=== PATIENT | male | born 1955 | race Caucasian/White ===

== ENCOUNTER 2016-06-11 07:38 | Inpatient (IN) | payer MEDICARE, BC ==
[2016-06-11] MEDS ORDERED: HYDROmorphone 1 MG/ML 1 ML SYRINGE IV PRN (12:06)
[2016-06-11] MEDS ORDERED: NALOXONE 0.4 MG/ML 1 ML VIAL IV PRN (12:06)
[2016-06-11] MEDS ORDERED: LORazepam 1 MG TAB PO PRN (12:08)
[2016-06-11] MEDS ORDERED: ONDANSETRON 4 MG/2 ML VIAL IVP PRN (12:09)
--- NOTE | 2016-06-11 12:10 | P.CONS ---
History of Present Illness - Reason for Consult Consult date: 06/11/16 Jaundice Requesting physician: Candelario Cantu - History of Present Illness 61-year-old gentleman from the [place] area with a past medical history of chronic pain maintained on oxycodone 4 times daily, [id number] diabetes mellitus, and nicotine cigarette dependency. Patient was evaluated in the [place] [facility] office last week in regards to new onset of jaundice. Over [place] time patient was experiencing diffuse abdominal pain which he thought was related to constipation. Constipation resolved and so did his pain however about a week ago he developed diffuse upper abdominal pain that radiated to the mid lower abdomen. He noticed darker colored urine as well as campus coordinator colored bowel movements over the last week. He states his liver chemistries last week were elevated and his cholesterol medication was discontinued. Repeat outpatient chemistries indicated an increase in his liver enzymes and total bilirubin. He was notified this morning of his lab results and advised to come to the hospital for further evaluation. Repeat liver chemistries as well as hepatitis panel testing is pending at time of this dictation. Currently patient denies abdominal pain. No history of jaundice or hepatitis. No history of alcoholism. 10 pound weight loss over the last 2 weeks. Outpatient Ultrasound 1-2 weeks ago reported to be without gallstones. Review of Systems Constitutional: Denies fever, chills, sweats, weight gain, or loss. HEENT: Negative for migraines, blurred vision or loss, earaches, drainage, tinnitus, oral mucosal lesions, dysphagia, or odynophagia. Cardiac: Negative for chest pain, arrhythmias, or palpitation. Respiratory: Cigarette nicotine dependency. Negative for shortness of breath, hemoptysis, cough, or sputum production. Gastrointestinal: Negative for nausea, vomiting, abdominal pain, diarrhea, constipation, hematemesis, hematochezia, and melena. Genitourinary: Negative for hematuria, urgency, frequency, polyuria, dysuria, or penile discharge. Musculoskeletal: History of chronic pain. Osteoarthritis. Negative for muscle aches, swelling. Neurologic: Negative for stroke or TIA. Endocrine: Diabetes mellitus. Negative for thyroid problems. Skin: Negative for rash or itching. Psychiatric: Negative history for depression and anxiety All systems: negative (See HPI) Past Medical History Past Medical History: Diabetes Mellitus, Osteoarthritis (OA) Additional Past Medical History / Comment(s): "BORDERLINE DIABETES-MONITORS BS", History of Any Multi-Drug Resistant Organisms: None Reported Past Surgical History: Hernia Repair, Orthopedic Surgery Additional Past Surgical History / Comment(s): ALVARO INGUINAL HERNIA REPAIR, RT KNEE ARTHROSCOPIC X 3, TOT RT KNEE, LT SHOULDER SURGERY Past Anesthesia/Blood Transfusion Reactions: No Reported Reaction Past Psychological History: No Psychological Hx Reported Smoking Status: Current every day smoker Past Alcohol Use History: None Reported Past Drug Use History: None Reported - Past Family History Mother Family Medical History: Cancer Additional Family Medical History / Comment(s): UTERINE Medications and Allergies Home Medications Medication Instructions Recorded Confirmed Type Cyclobenzaprine [Flexeril] 10 mg PO BID 12/26/13 06/11/16 History Etodolac [Lodine] 400 mg PO BID 12/26/13 06/11/16 History LORazepam [Ativan] 1 mg PO BID PRN 12/26/13 06/11/16 History Cholecalciferol [Vitamin D3] 1,000 unit PO DAILY 06/11/16 06/11/16 History Lisinopril [Zestril] 10 mg PO DAILY 06/11/16 06/11/16 History Sildenafil [Revatio] 20 mg PO DAILY PRN 06/11/16 06/11/16 History metFORMIN HCL [Glucophage] 500 mg PO BID 06/11/16 06/11/16 History oxyCODONE HCL 20 mg PO QID PRN 06/11/16 06/11/16 History Allergies Allergy/AdvReac Type Severity Reaction Status Date / Time No Known Allergies Allergy Verified 06/11/16 11:16 Physical Exam Vitals: Vital Signs Temp Pulse Resp BP Pulse Ox 06/11/16 11:51 96.7 F L 80 16 149/72 100 Intake and Output 06/10/16 06/11/16 06/11/16 22:59 06:59 14:59 Other: Weight 83.1 kg Patient Weight 06/12/16 06:59 Weight 83.1 kg General appearance: The patient is alert, oriented, in no acute distress. Jaundice. HET: Head is normocephalic and atraumatic. Pupils are equal and reactive. Sclerae icterus. Oropharynx is clear without lesions. Neck: Supple without lymphadenopathy. Trachea midline. Heart: S1 S2. Regular rate and rhythm. Lungs: No crackles or wheezes are heard. Abdomen: Soft, nontender, nondistended with bowel sounds. No peritoneal signs. No palpable organomegaly or masses. Extremities: Normal skin color and turgor. No cyanosis, rash, ulceration, clubbing, or edema. Radial and pedal pulses are 2/4 bilaterally. Neurological: No focal deficits. Strength and sensation are grossly intact. Results CBC & Chem 7: 06/11/16 12:21 Assessment and Plan (1) Jaundice Narrative/Plan: 61-year-old gentleman presents with 1 week history of new onset of jaundice with diffuse mild abdominal discomfort and elevated transaminases hyperbilirubinemia in the outpatient setting with darker colored urine and acholic stools suggestive of biliary obstruction possible mass possible stricture possible choledocholithiasis. Status: Acute Plan: 1. MRI liver/MRCP in the morning followed by ERCP evaluation. 2. Repeat liver chemistries and hepatitis panel testing. We will also obtain CA-19-9 and CEA level. 3. GI prophylaxis. 4. Diet as tolerated nothing by mouth after midnight. The tubing assembler has discussed the risks, benefits and alternative therapies for the above-mentioned procedure and for both sedation/analgesia as well as necessary blood product administration, if indicated, as they pertain to this patient. The patient has indicated understanding and acceptance of the risks and procedures discussed. Thank you for this kind referral and the opportunity to participate in the care of your patient. This consultation was discussed with Dr. White. The impression and plan of care have been directed as dictated.
[2016-06-11] MEDS ORDERED: SODIUM CHLORIDE 0.9% 1,000 ML IV SCH (12:15)
[2016-06-11 12:37] LABS: Glucose,Whole Blood 295 mg/dL (75-99)
[2016-06-11 12:47] LABS: INR 1.1 (<1.1); Prothrombin Time 10.6 sec (9.0-12.0)
[2016-06-11 13:13] LABS: Basophils % (A) 0 %; CH 28.6; CHCM 31.7; Eosinophils # (A) 0.1 k/uL (0-0.7); Eosinophils % (A) 1 %; HDW 2.22; HGB 14.3 gm/dL (13.0-17.5); Luc # (Auto) 0.08; Luc % (Auto) 1; Lymphocytes # (A) 1.3 k/uL (1.0-4.8); Lymphocytes % (A) 22 %; MCH 28.8 pg (25.0-35.0); MCHC 31.8 g/dL (31.0-37.0); MCV 90.4 fL (80.0-100.0); Monocytes # (A) 0.3 k/uL (0-1.0); Monocytes % (A) 5 %; Neutrophils # (A) 4.3 k/uL (1.3-7.7); Neutrophils % (A) 70 %; RBC 4.97 m/uL (4.30-5.90); WBC 6.1 k/uL (3.8-10.6)
[2016-06-11 13:18] LABS: ALT 802 U/L (21-72); AST 285 U/L (17-59); Alkaline Phosphatase 428 U/L (38-126); Amylase 31 U/L (30-110); Anion Gap 15 mmol/L; Blood Urea Nitrogen 14 mg/dL (9-20); Calcium 9.8 mg/dL (8.4-10.2); Carbon Dioxide 20 mmol/L (22-30); Chloride 99 mmol/L (98-107); Glucose 316 mg/dL (74-99); Non-African American GFR(MDRD) >60 (>60 ml/min/1.73 sqM); Phosphorous 4.1 mg/dL (2.5-4.5); Potassium 4.7 mmol/L (3.5-5.1); Sodium 134 mmol/L (137-145); Total Bilirubin 5.9 mg/dL (0.2-1.3)
[2016-06-11] MEDS: INSULIN LISPRO (humaLOG) 300 UNIT/3 ML VIAL SQ SCH ×3 (13:19→21:41)
[2016-06-11] MEDS: SODIUM CHLORIDE 0.9% 1,000 ML IV SCH (13:43)
[2016-06-11] MEDS: PANTOPRAZOLE 40 MG/10 ML VIAL IVP SCH (13:43)
[2016-06-11 14:58] LABS: Hepatitis B Surface Ag Index 0.07
[2016-06-11 15:03] LABS: Hepatitis B Core IgM Index 0.03
[2016-06-11 15:15] LABS: Hepatitis C Virus IgG Index 0.01
[2016-06-11 15:17] LABS: Hepatitis C Virus IgG Ab Negative (Negative)
[2016-06-11 15:45] LABS: Total Bilirubin 5.8 mg/dL (0.2-1.3)
[2016-06-11 16:23] LABS: Appearance,Urine Clear (Clear); Bilirubin,Urine 2+ (Negative); Glucose,Urine (UA) 4+ (Negative); Ketones,Urine Negative (Negative); Leukocyte Esterase,Urine Negative (Negative); Nitrite,Urine Negative (Negative); Protein,Urine Negative (Negative); Specific Gravity,Urine 1.008 (1.001-1.035); UA Billing (MACRO vs. MICRO) CHEM; Urobilinogen,Urine <2.0 mg/dL (<2.0)
[2016-06-11 16:48] LABS: Glucose,Whole Blood 272 mg/dL (75-99)
[2016-06-11] MEDS: CYCLOBENZAPRINE 10 MG TAB PO SCH (17:38)
[2016-06-11] MEDS: metFORMIN 500 MG TAB PO SCH (17:39)
[2016-06-11] MEDS ORDERED: metFORMIN 500 MG TAB PO SCH (21:00)
[2016-06-11 21:37] LABS: Glucose,Whole Blood 278 mg/dL (75-99)
--- NOTE | 2016-06-11 22:38 | HP ---
CHIEF COMPLAINT: Elevated LFTs. HISTORY OF PRESENT ILLNESS: This 61-year-old gentleman with a past medical history of multiple medical problems including diabetes mellitus, history of hyperlipidemia, history of degenerative joint disease, history of chronic pain syndrome, DJD, being followed by Dr. in the outpatient setting was evaluated for constipation, diffuse abdominal discomfort around [place] time. Because of lack of improvement, patient also had some blood work which showed increased LFTs. Lipid-lowering medications stopped, but still the patient had elevated LFTs and evaluated by Dr. White and the patient sent to [facility] as a direct admission at this time. MRCP is planned. There is no history of any fevers, rigors, chills. No history of headache, loss of consciousness, seizures. A CAT scan done and was reported as normal. Past medical history of diabetes mellitus, hyperlipidemia, DJD, history of pneumonia, hernia repair, joint replacement. MEDICATIONS PRIOR TO ADMISSION: 1. Oxycodone 20 mg t.i.d. p.r.n. 2. Glucophage 500 mg daily. 3. Ida 20 mg daily p.r.n. 4. Zestril 10 mg daily. 5. Ativan 1 mg b.i.d. p.r.n. 6. Lodine 400 mg p.o. b.i.d. 7. Flexeril 10 mg b.i.d. 8. Vitamin D3 1000 daily. Allergies are none. FAMILY HISTORY: History of uterine cancer in the family. SOCIAL HISTORY: Occasional alcohol intake and previous history of smoking. REVIEW OF SYSTEMS: ENT: No diminished hearing, diminished vision. CARDIOVASCULAR: No angina or palpitations. RESPIRATORY: No cough. GI: As mentioned earlier. : No dysuria. NERVOUS: No numbness, weakness. ALLERGY/IMMUNOLOGY: No asthma or hay fever. MUSCULOSKELETAL: As mentioned earlier. HEMATOLOGY/ONCOLOGY: No history of anemia. ENDOCRINE: No history of diabetes, hypothyroidism. CONSTITUTIONAL: As mentioned earlier. DERMATOLOGY: Negative. RHEUMATOLOGY: Negative. PSYCHIATRY: As mentioned earlier. PHYSICAL EXAM: Patient is alert and oriented x3. Pulse is 80, blood pressure 149/72, respirations 16, temperature 96.7, pulse ox 100% on room air. HEENT: Conjunctivae normal. Eyes icteric. Oral mucosa moist. Neck is no jugular venous distension, no carotid bruits, no lymph node enlargement. CARDIOVASCULAR: S1 and S2 muffled. RESPIRATORY: Breath sounds diminished in the bases. No rhonchi. No crackles. Abdomen is soft. Mild diffuse discomfort. No guarding. No rigidity. No mass palpable. No hepatosplenomegaly. LEGS: No edema. No swelling. NERVOUS SYSTEM: Higher function as mentioned. Moves all 4 limbs. No focal deficits. LYMPHATIC: No lymph nodes palpable in neck, axillae or groin. SKIN: No ulcers, rash or bleeding. LABS: WBC 6.3, hemoglobin is 14.3, INR is 1.1. Sodium 134, glucose 316, 295, 272. Total bilirubin is 5.9 and delta bilirubin is 3, AST is 285 ALT is 802, alk phos is 428. Lipase is 636. ASSESSMENT: 1. Acute possible obstructive jaundice, rule out choledocholithiasis or stricture or tumor. 2. Increased lipase. 3. Increased AST, ALT, alkaline phosphatase. 4. Diabetes mellitus type 2. 5. Hyponatremia. 6. History of hyperlipidemia. 7. Degenerative joint disease. 8. History of chronic pain syndrome. 9. History of lumbar stenosis. 10. History of hernia repair. 11. History of anxiety. 12. Remote history of nicotine dependence. RECOMMENDATIONS AND DISCUSSION: In this 61-year-old gentleman who presented with multiple complex medical issues, will monitor the patient closely. Continue the current medications. Continue symptomatic treatment. Otherwise at this time, I would recommend continuing the current medications and MRCP, IV fluids. Otherwise, monitor blood sugars closely. Repeat labs. Avoid hepatotoxic medications. Guarded prognosis of multiple complex medical issues. Further recommendations to follow. A copy of this dictation will be forwarded to who is the primary physician. TESSA
[2016-06-12 00:09] VITALS: PULSE 72
[2016-06-12] MEDS: SODIUM CHLORIDE 0.9% 1,000 ML IV SCH ×2 (01:47→15:47)
[2016-06-12] MEDS ORDERED: LACTATED RINGERS 1,000 ML IV SCH (07:06)
[2016-06-12] MEDS ORDERED: PANTOPRAZOLE 40 MG TABLET PO SCH (07:30)
[2016-06-12 08:06] LABS: Glucose,Whole Blood 272 mg/dL (75-99)
[2016-06-12 08:20] VITALS: BP 128/79; RESP 19; TEMP 98.7
[2016-06-12] MEDS: PANTOPRAZOLE 40 MG/10 ML VIAL IVP SCH (08:23)
[2016-06-12] MEDS: CYCLOBENZAPRINE 10 MG TAB PO SCH (08:23)
[2016-06-12] MEDS: metFORMIN 500 MG TAB PO SCH (08:23)
--- NOTE | 2016-06-12 08:23 | MR ---
EXAMINATION TYPE: MR liver wo/w con and mrcp DATE OF EXAM: 06/12/2016 7:38 AM COMPARISON: NONE HISTORY: obstructive jaundice elevated liver enzymes CONTRAST: Standard multiplanar, multisequence MRI departmental protocol utilizing 16 mL intravenous MultiHance gadolinium contrast. Thin and thick slice MRCP imaging is performed. FINDINGS: LIVER/GB/PANCREAS/BILIARY SYSTEM: Liver is overall within normal limits in size. In the posterior segment right hepatic lobe lateral as pect there is 1.5 cm round T1 hypointense and T2 hyperintense lesion that shows peripheral nodular en hancement with progressive centripetal filling, imaging characteristics are consistent with hemangiom a. No additional worrisome solid or cystic hepatic mass is identified. Gallbladder has distended margins but there are no intraluminal gallstones identified. Gallbladder wa ll thickness is upper limits of normal. Common bile duct is mildly dilated up to 9 mm. There is mild central slightly beaded intrahepatic biliary dilatation. There is abrupt narrowing of the common bile duct approximately 2 cm short of the duodenal ampulla. There is similar abrupt occlusion or nonvisualization of the pancreatic duct at this level. A neoplas m or pancreatic head mass is suspected as there is subtle diminished enhancement with area of subtle diminished T1 signal felt present. I suspect a roughly 2.8 x 1.7 cm mass near image 249 series 1001. Pancreatic duct is only mildly dilated most prominent in the head and proximal body. Ductal findings confirmed on MRCP imaging. Root of the SMA is not effaced. OTHER: Lung bases are clear. No pleural or pericardial effusion is seen. Spleen is upper limits of no rmal in size measuring 13 cm on long axis on coronal image 28. A few tiny simple appearing cysts are scattered throughout both kidneys. There is a 5 mm T1 hyperintense cyst upper pole level left kidney on image 48 series 901 suspected hemorrhagic cyst. There is no suspicious small or large bowel dilata tion. There is no concerning abdominal fluid collection. No suspicious greater than 1 cm abdominal ad enopathy is clearly seen. Visualized osseous structures show slight scoliotic curvature. Impression: Abrupt termination of the pancreatic duct and common bile duct at pancreatic head level w ith subtle heterogeneous diminished enhancement worrisome for roughly 2.5 cm mass or neoplasm at this level causing mild pancreatic and biliary dilatation. ERCP/endoscopic ultrasound for tissue sampling at this level advised.
[2016-06-12] MEDS: INSULIN LISPRO (humaLOG) 300 UNIT/3 ML VIAL SQ SCH ×2 (08:25→12:05)
[2016-06-12 08:56] LABS: Basophils % (A) 0 %; CH 28.5; CHCM 31.5; Eosinophils # (A) 0.1 k/uL (0-0.7); Eosinophils % (A) 2 %; HGB 13.9 gm/dL (13.0-17.5); Luc # (Auto) 0.07; Luc % (Auto) 1; Lymphocytes # (A) 1.2 k/uL (1.0-4.8); Lymphocytes % (A) 24 %; MCH 28.7 pg (25.0-35.0); MCHC 31.6 g/dL (31.0-37.0); MCV 90.9 fL (80.0-100.0); Mean Platelet Volume 9.9; Monocytes # (A) 0.2 k/uL (0-1.0); Monocytes % (A) 4 %; Neutrophils # (A) 3.4 k/uL (1.3-7.7); Neutrophils % (A) 68 %; RBC 4.84 m/uL (4.30-5.90); RDW 13.1 % (11.5-15.5); WBC (Perox) 5.28
[2016-06-12] MEDS ORDERED: LISINOPRIL 10 MG TAB PO SCH (09:00)
[2016-06-12] MEDS ORDERED: CHOLECALCIFEROL 1,000 UNIT TAB PO SCH (09:00)
[2016-06-12 09:10] LABS: ALT 747 U/L (21-72); AST 297 U/L (17-59); Alkaline Phosphatase 425 U/L (38-126); Anion Gap 12 mmol/L; Blood Urea Nitrogen 13 mg/dL (9-20); Calcium 9.4 mg/dL (8.4-10.2); Carbon Dioxide 25 mmol/L (22-30); Chloride 101 mmol/L (98-107); Glucose 307 mg/dL (74-99); Non-African American GFR(MDRD) >60 (>60 ml/min/1.73 sqM); Potassium 5.1 mmol/L (3.5-5.1); Sodium 138 mmol/L (137-145); Total Bilirubin 6.7 mg/dL (0.2-1.3)
[2016-06-12] MEDS ORDERED: INDOMETHACIN 50MG SUPPOSITORY RECTAL ONE (12:00)
[2016-06-12] MEDS ORDERED: LEVOFLOXACIN 500MG-D5W PMX 500 MG in DEXTROSE/WATER 1 100ML.BAG IVPB ONE (12:00)
[2016-06-12 12:06] LABS: Glucose,Whole Blood 221 mg/dL (75-99)
[2016-06-12] MEDS ORDERED: MIDAZOLAM 2 MG/2 ML VIAL ONE (13:27)
[2016-06-12] MEDS ORDERED: PROPOFOL 10 MG/ML 20 ML VIAL IV ONE (13:27)
[2016-06-12] MEDS ORDERED: LIDOCAINE 1% INJ 10MG/ML (20 ML MDV) ONE (13:27)
[2016-06-12] MEDS ORDERED: KETAMINE 10 MG/ML 20 ML VIAL ONE (13:27)
[2016-06-12] MEDS ORDERED: IV FLUID CONTINUATION 1,000 ML IV ONE ×2 (13:31)
[2016-06-12] MEDS ORDERED: IOHEXOL 300 MG/ML 50 ML BOTTLE INJ ONE (13:40)
--- NOTE | 2016-06-12 13:58 | P.PCN ---
Date of Procedure: 06/12/16 Procedure(s) Performed: Brief history: Patient is a 61-year-old white male, scheduled for an ERCP as a part of evaluation of painless obstructive jaundice. The patient presented with elevated LFTs and vague abdominal discomfort for the last 10 days duration. He was noted to have elevated serum transaminases which have been progressively worse bilirubin of 7 g/dL. Initial ultrasound as well as CT of the abdomen done last week. He had an MRCP done this morning showed mild dilation of the biliary system with intrahepatic biliary ductal dilation and distal CBD stricture as well as a 2.5 cm mass in the head of the pancreas. Procedure performed: ERCP with brush cytology and CBD stent placement Preoperative diagnoses: Obstructive jaundice IV sedation per anesthesia: Procedure: After informed consent was obtained from the patient and after the risks benefits and complications including bleeding perforation and pancreatitis explained in detail the patient was brought into the endoscopy unit. The patient was placed in prone position and IV conscious sedation was administered by anesthesia under continuous monitoring. The Olympus side-viewing duodenoscope was then inserted into the mouth and esophagus intubated without any difficulty. The scope was gradually advanced into the stomach and duodenum. The major papilla was identified without any difficulty. Initial cannulation resulted in opacification of the pancreatic duct and there was irregular stricture of the pancreatic duct noted in the head of the pancreas but no significant distal dilation. Following this the common bile duct was cannulated without any difficulty and upon injection of the dye there was a distal common bile duct stricture measuring 3 cm in length with proximal CBD ductal dilation. At this time the catheter was exchanged over a guidewire and brush cytology of the distal common bile duct stricture performed. Following this, a 7-Uzbek, 5 cm [place] stent was placed into the mid common bile duct with adequate biliary drainage. The patient tolerated the procedure well. Impression: 1. Tight distal common bile duct stricture, measuring 3 cm in length with proximal biliary dilation, status post breast cytology and CBD stent placement. . 2. 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 These findings are suspicious for pancreatic neoplasm. Recommendations: The findings of this examination were discussed with the patient as well as a family. Findings of this examination is suspicious for pancreatic neoplasm. He was advised to follow with the brush cytology results. He'll be started on a soft diet today and can be discharged home later today or tomorrow morning. He will be seen in the office early next week.
--- NOTE | 2016-06-12 14:23 | FL ---
FLUOROSCOPY 1 minute and 11 seconds of fluoroscopy time were utilized during ERCP. 4 images document the procedur e.
[2016-06-12 15:28] LABS: Iron 76 ug/dL (49-181)
[2016-06-12 15:39] LABS: % Iron Saturation 26.8 % (20-50); Total Iron Binding Capacity 284 ug/dL (261-462)
[2016-06-12 17:48] LABS: ANA w/Reflex to Titer NEGATIVE (NEGATIVE)
--- NOTE | 2016-06-13 14:55 | DS ---
DATE OF ADMISSION: 06/11/2016 DATE OF DISCHARGE: 06/12/2016 FINAL DIAGNOSES: 1. Obstructive jaundice, possibly secondary to common bile duct stricture measuring 3 cm, status post ERCP, CBD stent placement and brush cytology. 2. Increased lipase. 3. Rule out malignancy. 4. Increased AST, ALT, alkaline phosphatase. 5. Diabetes mellitus type 2. 6. Hyponatremia. 7. History of hyperlipidemia. 8. Degenerative joint disease. 9. History of chronic pain syndrome. 10. History of lumbar stenosis. 11. History of hernia repair. 12. History of anxiety. 13. Remote history of nicotine dependence. DISCHARGE DISPOSITION: The patient will be discharged in a stable condition and guarded prognosis. Dr. White cleared the patient for discharge. HISTORY OF PRESENT ILLNESS: This 61-year-old gentleman with a past medical history of multiple medical problems was admitted with features of obstructive jaundice. The patient had MRCP which showed obstruction of the CBD. The patient also had ERCP and the patient underwent CBD stent placement as well as brush biopsy for 3 cm ( ) distal CBD stricture. On exam, vitals are stable. Patient is jaundiced. CARDIOVASCULAR: S1 and S2 muffled. ABDOMEN: Soft. NERVOUS SYSTEM: No focal deficits. The patient is keen on going home. The total bilirubin was 6.7, AST was 297, ALT 747, alkaline phosphatase 425. Glucose was 221. The patient is being discharged in stable condition and guarded prognosis with the following advice: 1. Diet is cardiac. 2. Activity limited until followup. 3. Follow up with Dr. White. 4. Follow up with Iwona Durant as recommended Medications will be: 1. Vitamin D3, 1000 daily. 2. Flexeril 10 mg b.i.d. 3. Lodine 400 mg b.i.d. 4. Ativan 1 mg b.i.d. p.r.n. 5. Zestril 10 mg daily. 6. Revatio 20 mg daily p.r.n. 7. Glucophage 500 mg p.o. b.i.d. 8. Oxycodone 20 mg q.i.d. p.r.n. for pain. Follow up biopsies and further recommendations per Dr. White.
--- NOTE | 2016-06-16 13:59 | CDI ---
In responding to this query, please exercise your independent professional judgment. The [facility] Coding Staff and Clinical Documentation Specialists appreciate your assistance in clarifying documentation, maintaining compliance with coding guidelines, accurately documenting patients condition and capturing severity of illness. The fact that a question is asked does not imply that any particular answer is desired or expected. Communication forms are a method of clarifying documentation and are not made part of the Legal Health Record. Thank you in advance for your clarification. Last Revision, March 2015 Rehan Moralez [address] [place] [address] Documentation Clarification Form Date: 06/16/2016 1:42:00 PM From: Luh Trevizo [facility] Admit Date: 06/11/2016 10:45:00 AM Patient Name: Carlo Zavala Visit Number: [id number] Discharge Date: 06-12-16 Dr. Candelario Cantu Please confirm the principal diagnosis for this patient. Documentation and location in medical record included pathology report: "CBD stricture. ERCP. Per EMR: painless obstructive jaundice with elevated LFT s. CBD stricture with 2.5 cm mass in head of pancreas. Procedural findings: stricture of pancreatic duct. Findings suspicious for pancreatic neoplasm. CEA and CA19-9 not available." Presenting symptoms: Obstructive jaundice. MRCP showed obstruction of the CBD. Patient history/risk factors-History of smoking, constipation, diabetes, weight loss, family history of malignancy. Clinical Indicators: Lab findings: Elevated lipase, elevated total and conjugated bilirubin, elevated AST & ALT, elevated Alk Phos., hyponatremia. Radiology findings: Liver MRI-"worrisome for roughly 2.5 cm mass or neoplasm". Treatment: On Discharge Summary, you state "Follow up biopsy and further recommendation per Dr. White". Consults: Gastroenterology-ERCP performed with stent placement and bx. The patients principal diagnosis has not been clearly identified and requires clarification. In your professional opinion, can you please clarify which diagnosis, after study, accounted for the patients presenting symptoms and was the reason chiefly responsible for the admission? Please document in your progress notes and discharge summary in order to capture severity of illness and risk of mortality. Include clinical findings that support your diagnosis. FYI: Press F11 to launch patient chart. Place X here if this finding has no clinical significance, is not applicable or if you are not able to provide any additional documentation. MTDD
--- NOTE | 2016-06-17 12:11 | DS ---
ADDENDUM: DATE OF ADMISSION: 06/11/2016 DATE OF DISCHARGE: 06/12/2016 Obstructive jaundice possibly secondary to CBD stricture caused by possible pancreatic neoplasm.
== END 2016-06-12 15:55 | disposition home or self-care (01) | DRG 445 ==
LOC: 4MS4W 10:45
PROVIDERS: ADMIT Hospitalist; ATTEND Hospitalist
PROC: 0FB98ZX Excision of Common Bile Duct, Via Natural or Artificial Opening Endoscopic, Diagnostic (ICD-10-PCS; 2016-06-12)
PROC: BF101ZZ Fluoroscopy of Bile Ducts using Low Osmolar Contrast (ICD-10-PCS; 2016-06-12)
PROC: 0F798DZ Dilation of Common Bile Duct with Intraluminal Device, Via Natural or Artificial Opening Endoscopic (ICD-10-PCS; principal; 2016-06-12 13:25)
DX: K83.1 Obstruction of bile duct (principal); E87.1 Hypo-osmolality and hyponatremia; D37.8 Neoplasm of uncertain behavior of other specified digestive organs; E11.9 Type 2 diabetes mellitus without complications; K59.00 Constipation, unspecified; E78.5 Hyperlipidemia, unspecified; G89.4 Chronic pain syndrome; R63.4 Abnormal weight loss; R74.0 Nonspecific elevation of levels of transaminase and lactic acid dehydrogenase [LDH]; M48.06 Spinal stenosis, lumbar region; F41.9 Anxiety disorder, unspecified; M19.90 Unspecified osteoarthritis, unspecified site; F17.210 Nicotine dependence, cigarettes, uncomplicated; Z87.01 Personal history of pneumonia (recurrent); Z96.651 Presence of right artificial knee joint; Z80.49 Family history of malignant neoplasm of other genital organs; Z79.84 Long term (current) use of oral hypoglycemic drugs; Z79.891 Long term (current) use of opiate analgesic; Z79.899 Other long term (current) drug therapy
CPT/HCPCS: 43274; 74183; 74330; 80053; 80074; 81003; 82103; 82150; 82248; 82378; 82390; 82728; 83036; 83516; 83540; 83550; 83690; 83735; 84100; 84165; 85025; 85610; 86038; 86301; 88104; 88305; 93005; 99153

== ENCOUNTER 2021-10-16 06:42 | Day surgery (SDC) | payer MEDICARE, BC ==
[2021-10-14 15:20] VITALS: BMI 25.1
--- NOTE | 2021-10-15 13:53 | HP ---
HISTORY AND PHYSICAL DATE OF SURGERY: 10/16/2021 Carlo Zavala is a 66-year-old gentleman seen with right great toe hallux rigidus, failing conservative treatment measures. We discussed right great toe dorsal cheilectomy. The procedure, risks, complications, benefits and recovery were discussed. He was agreeable. Consent was obtained. PAST MEDICAL HISTORY: Insulin-dependent diabetes, hypertension, hyperlipidemia. PAST SURGICAL HISTORY: Knee arthroscopy, total knee arthroplasty, shoulder arthroscopy. DAILY MEDICATIONS: Humalog insulin, lisinopril, oxycodone, Lodine. ALLERGIES: NONE. SOCIAL HISTORY: He smokes one pack of cigarettes daily. PHYSICAL EVALUATION OF THE RIGHT FOOT: There is tenderness along the great toe MP joint. There is limited range of motion with severe pain. There is a palpable osteophyte dorsally. There is good perfusion sensation distally. Radiographs of the right foot were obtained revealing severe osteoarthritis of the great toe MP joint, large dorsal osteophytes. IMPRESSION: 1. Right great toe hallux rigidus. 2. Hypertension. 3. Hyperlipidemia. PLAN: Right great toe dorsal cheilectomy. MMODL / JOHNN: [id number] /
[2021-10-16] MEDS ORDERED: LACTATED RINGERS 1,000 ML IV SCH (06:51)
[2021-10-16] MEDS ORDERED: HYDROmorphone 0.5 MG/0.5 ML SYRINGE IVP PRN (06:51)
[2021-10-16] MEDS ORDERED: ONDANSETRON 4 MG/2 ML VIAL IVP ONE (06:51)
[2021-10-16] MEDS ORDERED: DEXAMETHASONE SOD PHOSPHATE 4 MG/ML 1 ML VIAL IV ONE (06:51)
[2021-10-16 07:18] LABS: Glucose,Whole Blood 95 mg/dL (75-99)
[2021-10-16] MEDS ORDERED: fentaNYL (PF) 50 MCG/ML 2 ML AMP ONE (07:23)
[2021-10-16] MEDS ORDERED: KETOROLAC 15 MG/ML 1 ML VIAL ONE (07:23)
[2021-10-16] MEDS ORDERED: PROPOFOL 10 MG/ML 20 ML VIAL IV ONE (07:23)
[2021-10-16] MEDS ORDERED: LIDOCAINE 2% INJ 20 MG/ML (2 ML VIAL) ONE (07:23)
[2021-10-16] MEDS ORDERED: MIDAZOLAM 2 MG/2 ML VIAL ONE (07:23)
[2021-10-16] MEDS ORDERED: BUPIVACAINE (PF) 0.25% 30 ML VIAL SQ ONE ×3 (07:41→07:49)
--- NOTE | 2021-10-16 08:03 | P.OP ---
Date of Procedure: 10/16/21 Preoperative Diagnosis: Right great toe hallux rigidus Postoperative Diagnosis: Right great toe hallux rigidus Procedure(s) Performed: Right great toe dorsal cheilectomy Anesthesia: TEDDY, local Surgeon: Alan Dumont Jet Man #1: Dagoberto Cedeno Estimated Blood Loss (ml): 2 Pathology: none sent Condition: stable Disposition: PACU Indications for Procedure: 66-year-old gentleman seen with symptomatic right great toe hallux rigidus with dorsal osteophytes. I discussed dorsal cheilectomy. He was agreeable. Consent was obtained. Operative Findings: See description of procedure Description of Procedure: Patient was taken to the operative suite. He received preoperative IV antibiotics. He underwent a general anesthetic by the department of anesthesia. Well-padded tourniquet placed along the right ankle area. Right foot prepped and draped in normal sterile orthopedic fashion. Extremity elevated and tourniquet insufflated to 250. A midline incision was made along the dorsal aspect of the MP joint of the great toe. I dissected down to the extensor tendon. Isaias CONTE helped assisted with retraction of that tendon and soft tissues. I made an incision through the dorsal capsule. Large osteophytes were identified. I utilized a rongeur to remove these dorsal osteophytes along the dorsal aspect of the metatarsal and dorsal aspect of the proximal pharynx. Once I completely removed all the dorsal osteophyte synovitis and increased range of motion. The wound was irrigated. The skin margins were approximated with nylon suture. The incision area was infiltrated with 1% plain Marcaine. Sterile dressings were applied. Tourniquet was released and immediate capillary refill of all digits noted. Patient was awakened and transferred to recovery in stable condition having tolerated the procedure well. Isaias CONTE assisted with the procedure.
[2021-10-16 08:06] VITALS: TEMP 97
[2021-10-16 08:18] VITALS: RESP 16
[2021-10-16 09:16] VITALS: BP 144/83; PULSE 62
== END 2021-10-16 09:27 | disposition home or self-care (01) ==
LOC: OR 06:42
PROVIDERS: ATTEND Orthopaedic Surgery
DX: M20.21 Hallux rigidus, right foot (principal); E11.9 Type 2 diabetes mellitus without complications; E78.5 Hyperlipidemia, unspecified; F17.210 Nicotine dependence, cigarettes, uncomplicated; I10 Essential (primary) hypertension; Z79.4 Long term (current) use of insulin
CPT/HCPCS: 28289; J2250; J1100; J0690; J2405; J3010; J1885; J2704; J1170; J2001

== ENCOUNTER 2021-11-20 06:06 | Day surgery (SDC) | payer MEDICARE, BC ==
--- NOTE | 2021-11-19 17:40 | HP ---
HISTORY AND PHYSICAL REASON FOR ADMISSION: Surgery scheduled for 11/10/2021 HISTORY OF PRESENT ILLNESS: Carlo Zavala is a 66-year-old gentleman seen with progressive right shoulder pain. We discussed options for treatment. He elected to proceed with right shoulder arthroscopy. Consent is obtained. PAST MEDICAL HISTORY: Insulin-dependent diabetes, hypertension, hyperlipidemia. SURGICAL HISTORY: Knee arthroscopy, total knee arthroplasty. Shoulder arthroscopy. DAILY MEDS: Ativan, Humalog, lisinopril, oxycodone. ALLERGIES: None. SOCIAL HISTORY: Smokes cigarettes. PHYSICAL EVALUATION OF THE RIGHT SHOULDER: Flexion is 90 degrees, abduction is 90 degrees. External rotation is 40 degrees with pain and weakness. Tenderness along the anterolateral acromion rotator cuff insertion. Impingement positive at 80. Drop-arm sign is positive. Distal neurovascular exam is intact. RADIOGRAPHS: Radiographs of the right shoulder revealed a type 2 acromion, evidence for acromioclavicular joint osteoarthritis and cystic changes of the tuberosity. MRI of the right shoulder revealed a rotator cuff tendon tear. IMPRESSION: 1. Right shoulder impingement with rotator cuff tear. 2. Right shoulder acromioclavicular joint osteoarthritis. 3. Hyperlipidemia. 4. Hypothyroidism. 5. Insulin-dependent diabetes. PLAN: Right shoulder arthroscopy, subacromial decompression, arthroscopic rotator cuff repair, Rebeca procedure and debridement. Surgery scheduled for 11/20/2021. MMODL / IJN: [id number] /
[~2021-11-20 06:06] MED LIST: DEXAMETHASONE SOD PHOSPHATE 4 MG/ML 1 ML VIAL IV ONE; HYDROmorphone 0.5 MG/0.5 ML SYRINGE IVP PRN; LACTATED RINGERS 1,000 ML IV SCH; LIDOCAINE 1% (10MG/ML) FOR IV START INTRADERMA PRN; MIDAZOLAM 2 MG/2 ML VIAL IV PRN; ONDANSETRON 4 MG/2 ML VIAL IVP ONE
[2021-11-20 06:45] LABS: Glucose,Whole Blood 100 mg/dL (70-110)
[2021-11-20] MEDS ORDERED: MIDAZOLAM 2 MG/2 ML VIAL IV ONE (06:59)
[2021-11-20] MEDS ORDERED: DEXAMETHASONE SOD PHOSPHATE 4 MG/ML 1 ML VIAL ONE (07:23)
[2021-11-20] MEDS ORDERED: METOPROLOL TARTRATE 5 MG/5 ML VIAL IVP ONE (07:23)
[2021-11-20] MEDS ORDERED: fentaNYL (PF) 50 MCG/ML 2 ML AMP ONE (07:23)
[2021-11-20] MEDS ORDERED: LIDOCAINE 2% INJ 20 MG/ML (2 ML VIAL) ONE (07:23)
[2021-11-20] MEDS ORDERED: MIDAZOLAM 2 MG/2 ML VIAL ONE (07:23)
[2021-11-20] MEDS ORDERED: SUCCINYLCHOLINE CHLORIDE 100 MG/5 ML SYR IV ONE (07:23)
[2021-11-20] MEDS ORDERED: PROPOFOL 10 MG/ML 20 ML VIAL IV ONE (07:23)
[2021-11-20] MEDS ORDERED: ROPIVACAINE 5 MG/ML 30 ML VIAL ONE (07:23)
--- NOTE | 2021-11-20 08:46 | P.OP ---
Date of Procedure: 11/20/21 Preoperative Diagnosis: Right shoulder impingement Postoperative Diagnosis: 1. Right shoulder rotator cuff tear 2. Right shoulder impingement 3. Right shoulder acromioclavicular joint osteoarthritis 4. Right shoulder superficial labral tear Procedure(s) Performed: 1. Right shoulder arthroscopic rotator cuff repair 2. Right shoulder arthroscopic subacromial decompression 3. Right shoulder arthroscopic Rebeca procedure 4. Right shoulder arthroscopic debridement labral tear Implants: 15.5 Arthrex swivel lock anchor Anesthesia: GETA, regional (Interscalene block) Surgeon: Alan Dumont [employer] Veterinarian #1: Dagoberto Cedeno Estimated Blood Loss (ml): 10 Pathology: none sent Condition: stable Disposition: PACU Indications for Procedure: 66-year-old gentleman seen with progressive right shoulder pain. After treatme nt options were discussed, he elected to proceed with arthroscopy. Operative Findings: see description of procedure Description of Procedure: Patient underwent an interscalene block by department of anesthesia. The patient was then taken to the operative suite. The patient underwent a general anesthetic by the department of anesthesia. The patient was placed into a lateral position and secured. There was appropriate padding of the bony prominence. Right shoulder was then prepped and draped in normal sterile orthopedic fashion. We placed the extremity in 10 pounds of longitudinal traction. A posterior incision was now made for a posterior working portal site. The trocar and cannula were inserted into the glenohumeral joint. Arthroscopy was initiated. Spinal needle was now inserted anteriorly, to ascertain the anterior working portal site. An incision was now made in that area, a trocar was inserted followed by a probe. There was some superficial tearing of the superior labrum. There were mild grade 1 chondromalacia changes of the glenohumeral joint with no osteochondral tears present. The biceps was probed and was found to be stable. I introduced a motorized shaver and debrided out the superficial fraying of the superior labrum. The residual labrum was found to be stable. Instruments were now removed from the glenohumeral joint. Utilizing the posterior working portal site, the trocar and cannula were inserted into the subacromial space. Arthroscopy initiated. I made an incision 2 fingerbreadths lateral to the acromion. I introduced my trocar followed by my ArthroCare ablator. I now began ablating thick subacromial bursal tissue, which exposed the undersurface of the anterior acromion. There was diminished subacromial space. There was a very prominent anterior acromion. A motorized bur was introduced and a subacromial decompression was performed. I also excised some osteophytes off the inferior aspect of the distal clavicle. The AC joint was visualized and noted to be fairly arthritic. The motorized bur was introduced in the anterior portal site and a Rebeca procedure was performed without difficulty, decompressing the AC joint nicely. I turned my attention to the rotator cuff. There was an area of significant partial tearing along the posterior aspect of the distal supraspinatus. Upon probing the area was a full- thickness perforation/tear present. I debrided the margins getting down to stable tendon tissue. The defect measured approximately 1.5 cm and was freely mobile. I abraded the footprint with a motorized bur. With the assistance of Isaias CONTE past 3 everted mattress sutures through good bites of rotator cuff tendon. I punched on the footprint area for insertion of an anchor. All 6 limbs of suture were passed through the eyelet of a 5.5 Arthrex swivel lock anchor. We placed the eyelet into the pre-punched hole. I held in position while Isaias CONTE tensioned all 6 suture limbs and deployed the anchor with good fixation noted. All residual suture limbs were now clipped. We had good compression of the tendon along the entire footprint. Instruments now removed from the portal sites. All portal sites were approximated with nylon suture. Sterile dressings were applied followed by a shoulder sling. Dagoberto CONTE assisted in this complex case. The patient was awakened, transferred to a bed, and taken to recovery in stable condition.
[2021-11-20 08:48] VITALS: TEMP 96.8
[2021-11-20 09:00] LABS: Glucose,Whole Blood 110 mg/dL (70-110)
[2021-11-20 10:31] VITALS: BP 154/82; PULSE 68; RESP 16
--- NOTE | 2021-11-20 18:20 | P.ANPRN ---
Procedure Note - Anesthesia - Nerve Block Performed Right Interscalene Single Time Out Performed: Yes Date of Procedure: 11/20/21 Procedure Start Time: 06:58 Procedure Stop Time: 07:03 Location of Patient: PreOp Indication: Acute Post-Operative Pain, Requested by Surgeon Sedation Type: Sedate with meaningful contact maintained Preparation: Sterile Prep Position: Supine Needle Types: Pajunk Needle Gauge: 21 Ultrasound used to visualize needle placement: Yes Ultrasound used to observe medication spread: Yes Blood Aspirated: No Pain Paresthesia on Injection Noted: No Resistance on Injection: Normal Image Stored and Saved: Yes Events: Uneventful and Well Tolerated (ropi .5% 25cc plusdexamethasone 4mg)
== END 2021-11-20 11:30 | disposition home or self-care (01) ==
LOC: OR 06:06
PROVIDERS: ATTEND Orthopaedic Surgery
DX: M75.111 Incomplete rotator cuff tear or rupture of right shoulder, not specified as traumatic (principal); M75.41 Impingement syndrome of right shoulder; S43.431A Superior glenoid labrum lesion of right shoulder, initial encounter; M94.211 Chondromalacia, right shoulder; M19.011 Primary osteoarthritis, right shoulder; G89.18 Other acute postprocedural pain; E11.69 Type 2 diabetes mellitus with other specified complication; E78.5 Hyperlipidemia, unspecified; I10 Essential (primary) hypertension; E03.9 Hypothyroidism, unspecified; Z79.4 Long term (current) use of insulin; Z79.899 Other long term (current) drug therapy; Z87.891 Personal history of nicotine dependence; Z82.3 Family history of stroke; Z80.49 Family history of malignant neoplasm of other genital organs
CPT/HCPCS: 64415; 76942; 29827; 29826; C1713; J2250; J1100; J0690; J2405; J3010; J2795; J0330; J2704; J2001